=== PATIENT | female | born 1950 ===

== ENCOUNTER → 2018-02-16 | Outpatient (CLI) | payer OTHER ==
[~2018-02-16] MED LIST: BEN10 PO; PRA20 PO
--- NOTE | 2018-02-16 09:03 | RADIOLOGY IMAGING REPORT ---
FACILITY: [facility] - [place] PATIENT NAME: Terese Giles : 1950 MR: [id number] V: [id number] EXAM DATE: ORDERING PHYSICIAN: JASMYNE JACOBSON TECHNOLOGIST: Location: [facility] [place] Patient: Terese Giles : 1950 Visit/Account:[id number] Date of Sevice: 02/16/2018 DEXA Scan Clinical history: Osteopenia. Comparison: None available. LUMBAR SPINE: The bone mineral density (BMD) measured from L1-L4 correlates with a Z-score -0.3 and a T-score of -1 .7 which is osteopenia as defined by the World Health Organization. The corresponding risk of fractu re in the lumbar spine is increased compared with a young adult reference population. HIP: Bone mineral density (BMD) measured in the left femoral neck region correlates with a Z-score -0.3 an d a T-score of -1.7 which is osteopenia as defined by the World Health Organization. The correspondi ng risk of fracture in the hip is increased compared with a young adult reference population. Bone mineral density (BMD) measured in the Femoral Neck region measures 0.805 g/cm2. Impression: 1. Lumbar spine: Osteopenia. 2. Left femoral neck region: Osteopenia. 3. Femoral Neck: Bone Mineral Density is 0.805 g/cm2 The next DEXA scan of this patient should include the following sites: L1-L4 and the left hip. FRAX? WHO Fracture Risk Assessment Tool link: <http://www.shef.ac.uk/FRAX/tool.jsp?locationValue=9> PLEASE NOTE: 1) The World Health Organization defines low BMD as follows: T-score Normal > -1 Osteopenia < -1 and > -2.5 Osteoporosis < -2.5 without fractures Established osteoporosis < -2.5 with fractures 2) In general, you may wish to consider: Diagnosis Treatment Follow-up DEXA Normal BMD Prevention 2-3 years Osteopenia Prevention/therapy 1-2 years Osteoporosis Therapy Yearly 3) Fracture risk estimated from the T-score is more accurate for vertebral fractures (often spontane ous) than for hip fractures. Report Dictated By: Carlos Negron at 02/16/2018 8:54 AM Report E-Signed By: Carlos Negron at 02/16/2018 8:58 AM WSN:[email or web address]
--- NOTE | 2018-02-16 16:13 | RADIOLOGY IMAGING REPORT ---
FACILITY: [facility] - [place] PATIENT NAME: NA TRUONG : [id number] MR: [id number] V: [id number] EXAM DATE: [id number] ORDERING PHYSICIAN: JASMYNE JACOBSON TECHNOLOGIST: Odalis Sy PROCEDURE:BILATERAL DIGITAL SCREENING MAMMOGRAM WITH CAD ASSISTED INTERPRETATION & 3D TOMOSYNTHESIS COMPARISON:None. INDICATIONS:SCREENING FINDINGS: Breast tissue demonstrates scattered fibroglandular tissue elements. Vascular calcifications are seen bilaterally. There is no suspicious mass, calcification, or architectural distortion. DIAGNOSTIC CATEGORY 2--BENIGN FINDING. RECOMMENDATIONS: ROUTINE MAMMOGRAM AND CLINICAL EVALUATION. IMPRESSION: BIRADS 2: Benign finding. No mammographic evidence of malignancy. Dictated by: Carlos Negron M.D. on 02/16/2018 at 15:55 Transcribed by: ROBERT on 02/16/2018 at 16:11 Approved by: Carlos Negron M.D. on 02/16/2018 at 16:13 [facility]
== END ==
LOC: MAMO 01:41
PROVIDERS: ATTEND Nurse Practitioner Family
DX: Z13.820 Encounter for screening for osteoporosis (principal); Z12.31 Encounter for screening mammogram for malignant neoplasm of breast; M85.89 Other specified disorders of bone density and structure, multiple sites
CPT/HCPCS: 77063; 77067; 77080

== ENCOUNTER → 2018-02-21 | Outpatient (CLI) | payer OTHER ==
[2018-02-21 08:24] LABS: PLATELET COUNT, AUTOMATED 291 K/uL (150-450)
[2018-02-21 08:34] LABS: LDL CHOLESTEROL 184 mg/dl
== END ==
LOC: LAB 08:01
PROVIDERS: ATTEND Nurse Practitioner Family
DX: Z00.00 Encounter for general adult medical examination without abnormal findings (principal); M81.0 Age-related osteoporosis without current pathological fracture; E55.9 Vitamin D deficiency, unspecified
CPT/HCPCS: 36415; 82040; 82247; 82306; 82310; 82374; 82435; 82465; 82565; 82947; 83036; 83718; 84075; 84132; 84155; 84295; 84443; 84450; 84460; 84478; 84520; 85025

== ENCOUNTER 2018-04-26 01:12 | Day surgery (SDC) | payer OTHER ==
[~2018-04-26] VITALS: Ht 162.6 cm; Wt 73.5 kg
[~2018-04-26 01:12] MED LIST changes: +ACET-1966 PO; +CHOL500025 PO; +MULT-1176 PO
[2018-04-26 08:13] VITALS: BP 166/68
[2018-04-26] MEDS ORDERED: NORMOSOL R SOLN(*) 1000 ML BAG 1,000 ML IV PRN (08:30)
[2018-04-26] MEDS ORDERED: LIDOCAINE/SOD BICARB 8.4% SYR ID ONE (08:30)
[2018-04-26] MEDS ORDERED: PROPOFOL EMUL(*) 10MG/ML 20 ML 40 ML ONE (08:48)
[2018-04-26] MEDS ORDERED: LIDOCAINE MPF 1% 5 ML VIAL ONE (08:48)
[2018-04-26 09:43] VITALS: BP 117/65
--- NOTE | 2018-04-26 09:45 | Short(Outpt) Discharge Summary ---
Discharge Summary Reason for Hosp/Final Diag: (1) Colon cancer screening Status: Chronic Hospital Course & Plan: Colonoscopy completed without problems: normal. Departure Discharge to: Home, Self Care Discharge Instructions Home Meds Reported Medications Acetaminophen (TYLENOL) 325 Mg Tablet, 325 MG PO PRN, TAB 04/18/18 Multivits,Ca,Minerals/Iron/Fa (WOMEN'S DAILY CAPLET) 1 Each Tablet, 1 EACH PO QDAY 03/14/18 Cholecalciferol (Vitamin D3) (VITAMIN D3) Unknown Strength Tablet, PO QDAY 03/01/18 Diet: Regular Activity: As Tolerated Special Instructions: Your colonoscopy was completed without any problems and your prep was excellent (Good Job!!). I didn't find any polyps, cancers, or other problems. I recommend that you have another colonoscopy in 10 years. Copies to: JASMYNE JACOBSON-BC, ONC JUANITA PARKINSON MD Apr 26, 2018 09:45
[2018-04-26 10:01] VITALS: BP 135/67
[2018-04-26 10:02] VITALS: BP 130/75
== END 2018-04-26 10:12 | disposition home or self-care (01) ==
LOC: OR 01:12
PROVIDERS: ATTEND Surgery
DX: Z12.11 Encounter for screening for malignant neoplasm of colon (principal)
CPT/HCPCS: 00812; 45378; J2001; J2704

== ENCOUNTER → 2018-07-17 | Outpatient (CLI) | payer OTHER ==
[2018-07-17 09:07] LABS: LDL CHOLESTEROL 93 mg/dl
== END ==
LOC: LAB 08:21
PROVIDERS: ATTEND Nurse Practitioner Family
DX: E78.00 Pure hypercholesterolemia, unspecified (principal); E55.9 Vitamin D deficiency, unspecified; E87.8 Other disorders of electrolyte and fluid balance, not elsewhere classified
CPT/HCPCS: 36415; 82040; 82247; 82306; 82310; 82374; 82435; 82465; 82565; 82947; 83718; 84075; 84132; 84155; 84295; 84450; 84460; 84478; 84520

== ENCOUNTER → 2018-10-23 | Outpatient (CLI) | payer OTHER ==
[2018-10-23 10:29] LABS: LDL CHOLESTEROL 94 mg/dl
== END ==
LOC: LAB 08:09
PROVIDERS: ATTEND Nurse Practitioner Family
DX: E87.8 Other disorders of electrolyte and fluid balance, not elsewhere classified (principal); E78.00 Pure hypercholesterolemia, unspecified
CPT/HCPCS: 36415; 82040; 82247; 82310; 82374; 82435; 82465; 82565; 82947; 83718; 84075; 84132; 84155; 84295; 84450; 84460; 84478; 84520

== ENCOUNTER → 2019-02-05 | Outpatient (CLI) | payer OTHER ==
[2019-02-05 09:39] LABS: PLATELET COUNT, AUTOMATED 283 K/uL (150-450)
[2019-02-05 09:46] LABS: LDL CHOLESTEROL 109 mg/dl
== END ==
LOC: LAB 09:13
PROVIDERS: ATTEND Nurse Practitioner Family
DX: D51.0 Vitamin B12 deficiency anemia due to intrinsic factor deficiency (principal); R53.83 Other fatigue; M85.80 Other specified disorders of bone density and structure, unspecified site; E78.2 Mixed hyperlipidemia; E55.9 Vitamin D deficiency, unspecified; Z13.1 Encounter for screening for diabetes mellitus; Z13.29 Encounter for screening for other suspected endocrine disorder; Z13.220 Encounter for screening for lipoid disorders
CPT/HCPCS: 36415; 82040; 82247; 82306; 82310; 82374; 82435; 82465; 82565; 82607; 82947; 83718; 84075; 84132; 84155; 84295; 84443; 84450; 84460; 84478; 84520; 85025